=== PATIENT | male | born 1995 | race Caucasian/White ===

== ENCOUNTER 2018-12-26 20:33 | Emergency (ER) | payer MEDICAID ==
[~2018-12-26] VITALS: Ht 170.2 cm; Wt 73.0 kg
[2018-12-26 20:39] VITALS: Ht 170.2 cm; Wt 73.0 kg
[2018-12-26 21:11] VITALS: BP 139/69
== END 2018-12-26 21:11 | disposition home or self-care (01) ==
LOC: ED 20:33
DX: M79.10 Myalgia, unspecified site (principal); Z04.1 Encounter for examination and observation following transport accident; V43.52XA Car driver injured in collision with other type car in traffic accident, initial encounter; Y93.I9 Activity, other involving external motion; Y92.488 Other paved roadways as the place of occurrence of the external cause; Y99.8 Other external cause status

== ENCOUNTER 2019-10-02 15:29 | Emergency (ER) | payer MEDICAID ==
[~2019-10-02] VITALS: Ht 170.2 cm; Wt 70.8 kg
[2019-10-02 15:52] VITALS: BP 127/83; Ht 170.2 cm; Wt 70.8 kg
== END 2019-10-02 16:33 | disposition home or self-care (01) ==
LOC: ED 15:29
DX: Z02.79 Encounter for issue of other medical certificate (principal)

== ENCOUNTER 2019-11-14 11:11 | Emergency (ER) | payer MEDICAID ==
[~2019-11-14] VITALS: Ht 170.2 cm; Wt 72.6 kg
[2019-11-14 11:20] VITALS: BP 127/74; Ht 170.2 cm; Wt 72.6 kg
== END 2019-11-14 11:58 | disposition home or self-care (01) ==
LOC: ED 11:11
DX: J30.2 Other seasonal allergic rhinitis (principal)

== ENCOUNTER 2020-02-19 06:50 | Emergency (ER) | payer MEDICAID ==
[~2020-02-19] VITALS: Ht 172.7 cm; Wt 75.3 kg
[2020-02-19 08:09] VITALS: BP 120/72
== END 2020-02-19 08:09 | disposition home or self-care (01) ==
LOC: ED 06:50
DX: B34.9 Viral infection, unspecified (principal); Z20.828 Contact with and (suspected) exposure to other viral communicable diseases
CPT/HCPCS: U0003